=== PATIENT | male | born 1940 | race Caucasian/White ===

== ENCOUNTER 2023-11-09 20:50 | Emergency (ER) | payer MEDICARE, SELFPAY ==
[2023-11-09 20:51] VITALS: BP 157/97; PULSE 77; RESP 14; TEMP 36.6; O2SAT 94; BMI 30.1
[2023-11-09] MEDS: Magnesium Citrate 300 ML PO (21:43)
--- NOTE | 2023-11-09 22:46 | ED.VIS.GI ---
HPI HPI - GI History of Present Illness Chief Complaint: Constipation Narrative Narrative: 82-year-old male presenting with constipation. He states he has not seen a doctor since the 80s. He states that he has an extreme fear of going to a doctor's office. He does not have any known medical history. Patient states over the last months he has increasing constipation but he does not have any abdominal pain. He has tried some milk of magnesia a few times with some success but his bowel movements are less this week. He has not tried a laxative or stool softener. He has not increased his high-fiber foods. Patient states he drinks about 1 glass of water a day and tries to stick to drinking orange juice, tea, coffee. Patient also admits to smoke marijuana but does not smoke cigarettes. He will occasionally have a vodka and OJ with cream. But he states he is not a heavy drinker. No fevers or chills. PFSH PFSH Medical History no medical history Home Medications polyethylene glycol 3350 17 gram/dose oral powder (Miralax) 17 g PO DAILY PRN constipation #119 grams 11/09/23 [Rx Last Taken Unknown] Allergy/AdvReac Type Severity Reaction Status Date / Time No Known Allergies Allergy Verified 11/09/23 20:51 Social History Smoking Status: Former smoker ROS ROS ED Constitutional Constitutional ED: Denies chills, fever(s) or sweats Eyes Eyes: Denies blurry vision or change in vision ENT ENT ED: Denies ear pain or sore throat Cardiovascular Cardiovascular: Denies chest pain, palpitations or racing heartbeat Respiratory/Chest Respiratory/Chest: Denies cough, dyspnea or sputum Gastrointestinal Gastrointestinal: Reports constipation; Denies abdominal pain, diarrhea, nausea or vomiting Genitourinary Genitourinary ED: Denies dysuria, hematuria or urinary frequency Musculoskeletal Musculoskeletal: Denies arthralgias, myalgias or neck pain Integumentary Denies abscess, Abrasions or rash Neurologic Neurologic: Denies headache(s), paresthesias or weakness Psychiatric Psychiatric: Denies anxiety, depression, suicidal ideation or suicidal thoughts Endocrine Endocrinology: Denies polydipsia or polyuria EXAM Physical Exam Const Vital Signs: 11/09/23 20:51 Temperature 98 F Temperature Source Temporal Pulse Rate 77 Respiratory Rate 14 Blood Pressure 157/97 H Blood Pressure Mean 117 Pulse Ox 94 Oxygen Delivery Method Room Air Positive well nourished HEENT Reports moist mucous membranes normocephalic and atraumatic Eyes PERRL Neck no lymphadenopathy Resp normal respiratory effort Cardio regular rate and regular rhythm GI non-tender and non-distended GI Narrative: Reducible umbilical hernia Back/Spine no CVA tenderness Neuro CN's II-XII intact bilaterally Sensorium / Orientation: alert Motor Exam: strength 5/5 throughout Psych mental status grossly normal Skin no wounds MDM MDM MDM Narrative Medical decision making narrative: Patient presenting with constipation. He is well-appearing and has no abdominal pain. His abdominal exam is benign. I did offer to do blood work and imaging however after long discussion the patient wants to try to do laxatives and increase his fluid intake as well as high-fiber foods to see if he can have a BM that way I feel this is reasonable. Who was counseled he can use MiraLAX at home and he was given a dose of magnesium citrate to take with him tonight if he is using his laxatives and not having any improvement in his bowel movements, or develops abdominal pain or severe symptoms he should return to the ER. Impression: 1 constipation Lab Data Attestation: I reviewed the patient's lab results. Discharge Plan Triage Chief Complaint: Constipation ED Provider: Jostin Salazar Dx/Rx/DC Orders Instructions: ED Constipation (Adult) Prescriptions: New polyethylene glycol 3350 [Miralax] 17 gram/dose powder 17 g PO DAILY PRN (Reason: constipation) Qty: 119 0RF Primary Care Provider: Care Physician,No Primary Referrals: Irina Stock [facility] [Provider Group] - 3-5 Days Care Physician,No Primary [Primary Care Provider] - Disposition Disposition: Home, Self Care Discharge Date/Time: 11/09/23 21:44
== END 2023-11-09 21:44 | disposition home or self-care (01) ==
PROVIDERS: Emergency Provider Student in an Organized Health Care Education/Training Program; Visit Provider Student in an Organized Health Care Education/Training Program
DX: K59.00 Constipation, unspecified (principal); Z87.891 Personal history of nicotine dependence
CPT/HCPCS: 99282

== ENCOUNTER 2023-12-12 16:48 | Emergency (ER) | payer MEDICARE, SELFPAY ==
[2023-12-12] VITALS (7 sets, daily range): BP systolic 114–151; BP diastolic 58–84; PULSE 60–108; RESP 16–18; TEMP 35.9; O2SAT 92–100; BMI 21.2
--- NOTE | 2023-12-12 17:05 | RAD_ITS ---
STUDY: X-RAY CHEST REASON FOR EXAM: Male, 83 years old. weakness TECHNIQUE: Single AP portable view of the chest. COMPARISON: 01/05/2005 FINDINGS: The lungs are clear and expanded. There is no demonstrated pleural abnormality. Normal size heart. Normal mediastinum and tae. Normal visualized pulmonary arteries. Normal visualized aortic arch and descending thoracic aorta. Normal visualized thoracic spine. Normal visualized ribs, clavicles, and shoulders. There is no demonstrated abnormality of the visualized soft tissue structures of the upper abdomen. RAD/Chest 1 View (Portable) IMPRESSION: Normal x-ray examination of the chest. Electronically Signed: Nito Freeman MD at 18:04 EDT ,
--- NOTE | 2023-12-12 17:33 | EX.ED.VIS.PS ---
HPI <LATONIA Corrigan - Last Filed: 12/12/23 21:34> HPI - Psych History of Present Illness Chief Complaint: Mental Health Narrative Narrative: 83-year-old male was brought in by his friend Rayshawn for evaluation. The patient lives alone and according to his friend is a hermit and eccentric. 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 He is barely getting out of bed or eating. His friends have brought groceries over and there is food in the home. He made statements today that he wants to or that he should be in pain. He states he wants to starve himself. He has not seen a doctor in 60+ years until recent ER visit last month for constipation. After that visit he did start taking MiraLAX and drinking more fluids. He has no abdominal complaints currently. Patient states he finished Cenify he was working on and now he feels like he has no purpose. His friend Agustín states he had a very traumatic childhood and mental health issues in his 20s but since then has been fine. He used to smoke pot and drink alcohol but stopped a month ago. PFSH <LATONIA Corrigan - Last Filed: 12/12/23 21:34> PFSH Medical History no medical history Home Medications polyethylene glycol 3350 17 gram/dose oral powder (Miralax) 17 g PO DAILY PRN constipation #119 grams 11/09/23 [Rx Last Taken Unknown] Allergy/AdvReac Type Severity Reaction Status Date / Time No Known Allergies Allergy Verified 12/12/23 16:50 Social History Smoking Status: Former smoker ROS <LATONIA Corrigan - Last Filed: 12/12/23 21:34> ROS ED ROS Narrative Constitutional: Negative for fever, chills. CVS: Negative for chest pain. Respiratory: Negative for shortness of breath. GI: Negative for abdominal pain. Neuro: Negative for headache. EXAM <LATONIA Corrigan - Last Filed: 12/12/23 21:34> Physical Exam Narrative Exam Narrative: CONST: Patient sitting in no acute distress. EYES: Normal inspection. NECK: Normal inspection. RESP: No respiratory distress, CTAB. CVS: Regular rate and rhythm, no murmur, no gallop. ABD: Soft and nontender, no guarding or rebound, nondistended. SKIN: Color normal, appears dry, no rash, warm, dry, intact. EXTREMITIES: Normal appearance, no pedal edema. NEURO: Alert and oriented x 4, answering questions appropriately. PSYCH: Flat affect. Const Vital Signs: 12/12/23 16:52 12/12/23 17:49 12/12/23 18:00 Temperature 96.6 F L Temperature Source Temporal Pulse Rate 108 H 62 62 Respiratory Rate 18 18 18 Blood Pressure 120/76 133/61 H 130/58 H Blood Pressure Mean 90 85 82 Pulse Ox 92 100 100 Oxygen Delivery Method Room Air Room Air Room Air 12/12/23 19:00 12/12/23 20:00 12/12/23 21:00 Temperature Temperature Source Pulse Rate 61 62 61 Respiratory Rate 16 16 18 Blood Pressure 151/67 H 114/78 117/76 Blood Pressure Mean 95 90 89 Pulse Ox 98 98 98 Oxygen Delivery Method Room Air Room Air Room Air 12/12/23 20:00 12/12/23 22:00 Temperature Temperature Source Pulse Rate 60 65 Respiratory Rate 16 16 Blood Pressure 114/78 149/84 H Blood Pressure Mean 90 105 Pulse Ox 98 98 Oxygen Delivery Method Room Air Room Air <Dr. Mundo Vivas, DO - Last Filed: 12/12/23 23:35> Physical Exam Const Vital Signs: 12/12/23 16:52 12/12/23 17:49 12/12/23 18:00 Temperature 96.6 F L Temperature Source Temporal Pulse Rate 108 H 62 62 Respiratory Rate 18 18 18 Blood Pressure 120/76 133/61 H 130/58 H Blood Pressure Mean 90 85 82 Pulse Ox 92 100 100 Oxygen Delivery Method Room Air Room Air Room Air 12/12/23 19:00 12/12/23 20:00 12/12/23 21:00 Temperature Temperature Source Pulse Rate 61 62 61 Respiratory Rate 16 16 18 Blood Pressure 151/67 H 114/78 117/76 Blood Pressure Mean 95 90 89 Pulse Ox 98 98 98 Oxygen Delivery Method Room Air Room Air Room Air 12/12/23 20:00 12/12/23 22:00 Temperature Temperature Source Pulse Rate 60 65 Respiratory Rate 16 16 Blood Pressure 114/78 149/84 H Blood Pressure Mean 90 105 Pulse Ox 98 98 Oxygen Delivery Method Room Air Room Air Psych cooperative Attitude: calm Activity / Motor Behavior: psychomotor slowing Speech: slow Mood & Affect: flat affect Thought Process: tangential Thought Content: suicidality and delusion(s) MDM <LATONIA Corrigan - Last Filed: 12/12/23 21:34> [facility] Narrative Medical decision making narrative: History gathered from: Patient and friend Patient having general decline, not caring for himself, made statements of wishing he was not around today or that he would starve himself to . Friend brought him in for evaluation. He is in no distress. He has a flat affect. He does have very dry skin and slightly dry mucous membranes. He is fully alert and oriented and has no focal neurological deficits. CBC and CMP are WNL. TSH is slightly elevated at 4.63 but this would not contribute to his symptoms. Urine tox is positive for cannabinoids. He is likely still testing positive although he states he quit several weeks ago. Alcohol level is negative. CT brain and CXR show no acute process. There is no medical etiology to explain his symptoms and he is medically cleared. Patient will be evaluated by a crisis counselor. Lab Data Attestation: I reviewed the patient's lab results. Labs: Laboratory Results - last 24 hr 12/12/23 12/12/23 12/12/23 17:30 17:49 18:50 WBC 5.9 RBC 5.13 Hgb 15.7 Hct 45.9 MCV 89.5 MCH 30.6 MCHC 34.2 RDW Std Deviation 39.2 RDW Coeff of Dov 11.9 Plt Count 269 MPV 9.0 Immature Gran % (Auto) 0.200 Neut % (Auto) 74.8 H Lymph % (Auto) 15.2 L Crowley % (Auto) 8.8 Eos % (Auto) 0.5 Baso % (Auto) 0.5 Absolute Neuts (auto) 4.4 Absolute Lymphs (auto) 0.90 Nucleated RBC % 0 Sodium 139 Potassium 3.9 Chloride 107 Carbon Dioxide 24.0 Anion Gap 8 BUN 16 Creatinine 1.05 Estim Creat Clear Calc 49.28 Est GFR (MDRD) Af Amer 87 Est GFR (MDRD) Non-Af 72 BUN/Creatinine Ratio 15.2 Glucose 126 H Calcium 8.9 Total Bilirubin 1.00 AST 18 ALT 32 Alkaline Phosphatase 62 Troponin I High Sens 20 Total Protein 6.4 Albumin 3.5 Globulin 2.9 Albumin/Globulin Ratio 1.2 TSH 4.63 H Urine Color Yellow Urine Clarity Clear Urine pH 6.5 Ur Specific [place] 1.025 Urine Protein 15 H Urine Glucose (UA) Normal Urine Ketones 5 H Urine Occult Blood Negative Urine Nitrite Negative Urine Bilirubin Negative Urine Urobilinogen 4 H Ur Leukocyte Esterase Negative Urine RBC 0 SEEN Urine WBC 0 SEEN Ur Squamous Epith Cells 0 SEEN Urine Bacteria 0 SEEN Urine Mucus 0 SEEN Urine Opiates Screen NEGATIVE Urine Methadone Screen NEGATIVE Ur Barbiturates Screen NEGATIVE Ur Phencyclidine Scrn NEGATIVE Ur Amphetamines Screen NEGATIVE MDMA (Ecstasy) Screen NEGATIVE U Benzodiazepines Scrn NEGATIVE Urine Cocaine Screen NEGATIVE U Cannabinoids Screen POSITIVE H Ur Drug Screen Comment Ethyl Alcohol < 3.0 Radiography Diagnostic Testing: Clinical Impression(s) from Imaging Studies Chest X-Ray 12/12/23 17:05 IMPRESSION: Normal x-ray examination of the chest. Electronically Signed: Nito Freeman MD at 18:04 EDT Reading Location ID and State: [id number] / [employer] Tel , Service support , Brain CT 12/12/23 19:14 IMPRESSION: Chronic involutional changes of the brain. Electronically Signed: Nito Freeman MD at 20:58 EDT Reading Location ID and State: [id number] / [employer] Tel , Service support , ED attending interpretation of 1-view chest x-ray shows normal heart size, no acute infiltrate. EKG Initial EKG: Attestation: I personally reviewed and interpreted this EKG as follows: Interpretation: Sinus Rhythm and No Acute Injury Pattern Comments: Normal sinus rhythm at 65 bpm, normal intervals, no ischemic change <Dr. Mundo Vivas, - Last Filed: 12/12/23 23:35> [facility] History & Record Review Discussion w/independent historian: Patient and Friend Lab Data Labs: Laboratory Results - last 24 hr 12/12/23 12/12/23 12/12/23 17:30 17:49 18:50 WBC 5.9 RBC 5.13 Hgb 15.7 Hct 45.9 MCV 89.5 MCH 30.6 MCHC 34.2 RDW Std Deviation 39.2 RDW Coeff of Dov 11.9 Plt Count 269 MPV 9.0 Immature Gran % (Auto) 0.200 Neut % (Auto) 74.8 H Lymph % (Auto) 15.2 L Crowley % (Auto) 8.8 Eos % (Auto) 0.5 Baso % (Auto) 0.5 Absolute Neuts (auto) 4.4 Absolute Lymphs (auto) 0.90 Nucleated RBC % 0 Sodium 139 Potassium 3.9 Chloride 107 Carbon Dioxide 24.0 Anion Gap 8 BUN 16 Creatinine 1.05 Estim Creat Clear Calc 49.28 Est GFR (MDRD) Af Amer 87 Est GFR (MDRD) Non-Af 72 BUN/Creatinine Ratio 15.2 Glucose 126 H Calcium 8.9 Total Bilirubin 1.00 AST 18 ALT 32 Alkaline Phosphatase 62 Troponin I High Sens 20 Total Protein 6.4 Albumin 3.5 Globulin 2.9 Albumin/Globulin Ratio 1.2 TSH 4.63 H Urine Color Yellow Urine Clarity Clear Urine pH 6.5 Ur Specific [place] 1.025 Urine Protein 15 H Urine Glucose (UA) Normal Urine Ketones 5 H Urine Occult Blood Negative Urine Nitrite Negative Urine Bilirubin Negative Urine Urobilinogen 4 H Ur Leukocyte Esterase Negative Urine RBC 0 SEEN Urine WBC 0 SEEN Ur Squamous Epith Cells 0 SEEN Urine Bacteria 0 SEEN Urine Mucus 0 SEEN Urine Opiates Screen NEGATIVE Urine Methadone Screen NEGATIVE Ur Barbiturates Screen NEGATIVE Ur Phencyclidine Scrn NEGATIVE Ur Amphetamines Screen NEGATIVE MDMA (Ecstasy) Screen NEGATIVE U Benzodiazepines Scrn NEGATIVE Urine Cocaine Screen NEGATIVE U Cannabinoids Screen POSITIVE H Ur Drug Screen Comment Ethyl Alcohol < 3.0 Radiography Diagnostic Testing: Clinical Impression(s) from Imaging Studies Chest X-Ray 12/12/23 17:05 IMPRESSION: Normal x-ray examination of the chest. Electronically Signed: Nito Freeman MD at 18:04 EDT , Brain CT 12/12/23 19:14 IMPRESSION: Chronic involutional changes of the brain. Electronically Signed: Nito Freeman MD at 20:58 EDT , Management Discussion w/another healthcare provider: hold worker/Case management Treatment and Re-Evaluation Narrative: I have personally performed a face to face assessment of the patient and have reviewed the MAXIMUS Note. I performed a substantive portion of the visit including all aspects of the following. My moon findings include: History is 83-year-old male brought to the emergency room by his friend who described him as being a loner and eccentric. Patient has very grandiose ideas. Reportedly not eating and told nursing that he is starving himself to kill the demon inside of him. Patient is cooperative but does admit to self-harm desires Exam is patient appears to have delusional thinking and tangential thoughts. Positive SI Medical Decison Making psychiatric screening labs will be obtained. CT of the brain was obtained and shows no acute findings. Will have crisis assess him. I am planning on a pink slip for [facility] psych admission Discharge Plan Triage Chief Complaint: Mental Health ED Midlevel Provider: Adilia Morris ED Provider: Mundo Vivas Dx/Rx/DC Orders Clinical Impression: Depression Prescriptions: No Action polyethylene glycol 3350 [Miralax] 17 gram/dose powder 17 g PO DAILY PRN (Reason: constipation) Qty: 119 0RF Primary Care Provider: Care Physician,No Primary Referrals: Care Physician,No Primary [Primary Care Provider] -
[2023-12-12 17:39] LABS: Absolute Neutrophil Count 4.4 X10^3/uL (2.0-7.7); Basophil# 0.03 X10^3/uL; Basophil% 0.5 % (0-1); Eosinophil# 0.03 X10^3/uL; Eosinophils% 0.5 % (0-5); Hematocrit 45.9 % (40-54); Hemoglobin 15.7 g/dL (13.0-16.5); Lymphocyte % 15.2 % (19-41); Mean Corp Hgb Conc 34.2 g/dL (32-36); Mean Corpuscular Hgb 30.6 pg (27.0-32.0); Mean Corpuscular Volume 89.5 fL (80-94); Monocyte# 0.52 X10^3/uL; Monocyte% 8.8 % (0-10); NRBC Flagged by Analyzer 0 % (0-5); Neutrophil # 4.42 X10^3/uL (2.7-7.7); Neutrophil % 74.8 % (47-70); Platelet Count 269 K/mm3 (150-450); RBC Distribution Width CV 11.9 % (11.6-14.6); RBC Distribution Width SD 39.2 fl (35.1-43.9); Red Blood Count 5.13 M/mm3 (4.6-6.2); White Blood Count 5.9 K/mm3 (4.4-11.0)
[2023-12-12] MEDS: 0.9% Normal Saline (1000mL) 1,000 ML 999 ML IV (17:44)
[2023-12-12 18:02] LABS: ALB/GLOB Ratio 1.2 RATIO (0.9-2.4); AST(SGOT) 18 U/L (15-37); Alanine Aminotransfer ALT/SGPT 32 U/L (16-61); Albumin, Serum 3.5 g/dL (3.2-5.0); Alkaline Phosphatase 62 U/L (45-117); Anion Gap 8 (5-15); BUN 16 mg/dL (7-18); BUN/Creat Ratio 15.2 RATIO (10-20); Calcium,Total 8.9 mg/dL (8.5-10.1); Chloride 107 mmol/L (98-107); Creatinine, Serum 1.05 mg/dL (0.70-1.30); EST Glomerular Filtration Rate 72 mL/min (>60); Est Glom Filt Rate - Afr Amer 87 mL/min (>60); Estimated Creatinine Clearance 49.28 ml/min; Globulin 2.9 g/dL (2.2-4.2); Glucose 126 mg/dL (74-106); Potassium 3.9 mmol/L (3.5-5.1); Protein, Total 6.4 g/dL (6.4-8.2); Sodium Level 139 mmol/L (136-145)
[2023-12-12 18:05] LABS: Bacteria 0 SEEN /hpf (None Seen); Mucous, Urine 0 SEEN /hpf (<or=2+); Red Blood Cells-Urine 0 SEEN /hpf (0-5); Squamous Epithelial Cells - UA 0 SEEN /hpf (0-5); White Blood Cells 0 SEEN /hpf (0-5)
[2023-12-12 18:06] LABS: Color, Urine Yellow (Yellow); Glucose, Dipstick Normal (Normal); Ketone-Dipstick 5 mg/dl (Negative); Leukocyte Esterase-Dipstick Negative /ul (Negative); Nitrite-Dipstick Negative (Negative); Occult Blood-Urine Negative /ul (Negative); Protein-Dipstick 15 mg/dl (Negative); Specific Gravity, Urine 1.025 (1.002-1.030); Urine Bilirubin Dipstick Negative (Negative); Urine Clarity Clear (Clear); Urine Urobilinogen 4 mg/dl (Normal); Urine pH 6.5 (5.0 - 8.0)
[2023-12-12 18:29] LABS: Amphetamine Urine VISTA NEGATIVE (<1000 ng/mL); Barbiturate Urine VISTA NEGATIVE (< 200 ng/mL); Benzodiazepine Urine VISTA NEGATIVE (< 200 ng/mL); Cocaine Urine VISTA NEGATIVE (< 300 ng/mL); Ecstacy Urine VISTA NEGATIVE (< 500 ng/mL); Methadone Urine VISTA NEGATIVE (< 300 ng/mL); PCP Urine VISTA NEGATIVE (< 25 ng/mL); THC Urine VISTA POSITIVE (< 50 ng/mL)
--- NOTE | 2023-12-12 19:14 | CT_ITS ---
STUDY: CT BRAIN WITHOUT CONTRAST REASON FOR EXAM: Male, 83 years old. ams RADIATION DOSAGE (If Supplied By Facility): CTDIvol = ( 44.99 ) mGy, DLP = ( 829.85 ) mGycm TECHNIQUE: Transaxial CT imaging of the brain was performed without administration of intravenous contrast material. Individualized dose optimization techniques were used for this CT. COMPARISON: 01/05/2006 FINDINGS: Normal soft tissue structures. Normal calvarium. There is mild cerebral atrophy with widening of the extra-axial spaces and ventricular dilatation. Normal white matter tracts of the cerebral hemispheres. Normal basal ganglia and thalami. Normal brainstem. Normal cerebellum. There is no intracranial hemorrhage. There are no findings of an acute ischemic infarction. Normal visualized paranasal sinuses. CT/Brain/Head without Contrast IMPRESSION: Chronic involutional changes of the brain. Electronically Signed: Nito Freeman MD at 20:58 EDT ,
[2023-12-12 19:15] LABS: Vista UDS pH Range 6
--- NOTE | 2023-12-12 19:15 | EKG12_ITS ---
Test Reason : DYSRHYTHMIA Blood Pressure : / mmHG Vent. Rate : 065 BPM Atrial Rate : 065 BPM P-R Int : 138 ms QRS Dur : 086 ms QT Int : 394 ms P-R-T Axes : 089 054 057 degrees QTc Int : 409 ms Normal sinus rhythm Normal ECG Confirmed by Angel Simon ([id number]), supervising film or videotape editor BOY CARROLL ([id number]) on 12/14/2023 9:51:30 AM Referred By: Confirmed By:Angel Simon
[2023-12-12 19:45] LABS: Thyroid Stim Hormone (TSH) 4.63 uIU/mL (0.358-3.74); Troponin-I HS 20 pg/mL (3.0-78.0)
[2023-12-12 20:14] LABS: Alcohol, Blood (Medical)-Serum < 3.0 mg/dL
--- NOTE | 2023-12-12 20:21 | ED.RN ---
[facility] CALLED, CHART FAXED.
--- NOTE | 2023-12-13 01:38 | ED.RN ---
PT REFERRED TO [facility]
[2023-12-13 02:13] VITALS: BP 134/73; PULSE 62; RESP 16; O2SAT 97
--- NOTE | 2023-12-13 04:19 | ED.RN ---
Pt accepted at [facility] by Dr. Mar rm [id number] [phone] [email or web address] eta 8AM
--- NOTE | 2023-12-13 04:43 | ED.RN ---
Report given to Mariano MARISCAL at [place]. Questions/concerns answered.
[2023-12-13 06:13] VITALS: BP 181/107; PULSE 72; RESP 16; O2SAT 99
[2023-12-13] MEDS: cloNIDine HCl 0.1 MG Tablet PO (06:31)
[2023-12-13 07:43] VITALS: BP 165/67; PULSE 67; RESP 18; TEMP 36.1; O2SAT 98
[2023-12-13 07:44] VITALS: BP 165/67; PULSE 67; RESP 18; TEMP 36.1; O2SAT 98
== END 2023-12-13 07:51 ==
PROVIDERS: Physician Assistant; Emergency Provider Emergency Medicine; Visit Provider Emergency Medicine
DX: F32.A Depression, unspecified (principal); Z87.891 Personal history of nicotine dependence
CPT/HCPCS: 70450; 71045; 80053; 80307; 80320; 81001; 84443; 84484; 85025; 87811; 93005; 96360; 96361; 99285; J7030; A4216; G0480